=== PATIENT | male | born 1960 | race Caucasian/White ===

== ENCOUNTER 2021-05-10 02:35 | Emergency (ER) | payer MEDICARE, OTHER ==
[~2021-05-10] VITALS: Ht 182.9 cm; Wt 93.0 kg
[2021-05-10 03:19] LABS: HEMOGLOBIN 15.2 gm/dl (14.0-17.5); RED BLOOD COUNT 4.6 M/UL (4.20-5.50); WHITE BLOOD COUNT 6.1 K/UL (4.5-11.0)
[2021-05-10 03:43] LABS: BUN/CREATININE RATIO 13 (0-10)
[2021-05-10] MEDS ORDERED: PROVENTIL HFA6.7 GM INH (04:21)
[2021-05-10] MEDS ORDERED: DECADRON6 MG PO (04:21)
== END 2021-05-10 06:50 | disposition home or self-care (01) ==
LOC: ER1 02:35
PROVIDERS: Physician Assistant
DX: U07.1 COVID-19 (principal); Z23 Encounter for immunization; E11.9 Type 2 diabetes mellitus without complications; Z88.0 Allergy status to penicillin
CPT/HCPCS: 71045; 80053; 82550; 82553; 83874; 83880; 84484; 85025; 85379; 85610; 85730; 93005; 96374; 99285; M0243; U0002